=== PATIENT | male | born 1975 | race Caucasian/White ===

== ENCOUNTER 2019-10-15 17:28 | Emergency (ER) | payer MEDICAID, SELFPAY ==
[2019-10-15 17:31] VITALS: BP 133/76; PULSE 84; RESP 20; O2SAT 98
[2019-10-15 17:36] VITALS: BP 133/76; PULSE 77; RESP 17; TEMP 37.1; O2SAT 98; BMI 23.7
--- NOTE | 2019-10-15 17:43 | XR_ITS ---
PROCEDURE: XR WRIST RT 2V CLINICAL INDICATION: injury COMPARISON: No exams were available for comparison FINDINGS: The distal radius and ulna appear intact. The carpal bones all appear normal. There is mild diffuse soft tissue swelling of the distal forearm and hand however see no opaque or semi opaque foreign bodies. IMPRESSION: Possible mild soft tissue swelling, no fracture seen and no definite foreign body seen Dictated by: Dr. Quincy Parry MD 10/15/2019 19:49 Dr. Quincy Parry MD in [place] 10/15/2019 19:49
--- NOTE | 2019-10-15 18:32 | PC.NURSE ---
pt and updated on plan of care and wait. both deny questions or needs at this time.
--- NOTE | 2019-10-15 19:00 | [facility].EDGENADL ---
ED Disposition Clinical Impression: Wrist laceration Qualifiers: Encounter type: initial encounter Laterality: right Qualified Code(s): S61.511A - Laceration without foreign body of right wrist, initial encounter Disposition: Home, Self-Care Condition on Discharge: Good Instructions: DI for Laceration Repair Additional Instructions: Additional instructions for LACERATION: Clean the wound daily with soap and water. You may shower. Apply a thin film of antibiotic ointment such as neosporin or triple antibiotic after showering and apply a bandage. Avoid submerging the wound, no swimming. See your primary care physician or return to the [facility] in 10 days for suture removal. The [facility] is open 1 PM to 9 PM 7 days a week. Return if any signs of infection including increasing pain, pus drainage, swelling, redness, red streaks, or fever. Referrals: Too Garay [Primary Care Provider] - - Critical Care Critical Care Time: No Attestation: On 10/15/19, the high probability of a clinically significant, sudden or life threatening deterioration of the following system(s) required my full and direct attention, intervention and personal management. The time I documented below is in addition to time spent performing reported procedures but includes the following listed in this critical care notation. Medical Decision Making - Mundo Inquiry Pt receiving controlled substance: No Vital Signs: 10/15/19 17:31 10/15/19 17:36 Temperature 98.7 F Temperature Source Oral Pulse Rate [Right Radial] 84 77 Respiratory Rate 20 17 Blood Pressure [Right Arm] 133/76 133/76 Blood Pressure Mean [Right Arm] 95 95 Blood Pressure Source [Right Arm] Automatic Cuff Blood Pressure Position [Right Arm] Supine 02 Sat by Pulse Oximetry 98 98 Oxygen Delivery Method Room Air Room Air Orders (Tests/Meds): ED MEDICATIONS Discontinued Medications Generic Name Dose Route Start Last Admin Trade Name Freq PRN Reason Stop Dose Admin Lidocaine/Epinephrine 10 ml 10/15/19 19:05 10/15/19 19:19 Lidocaine 2% W/Epi 1:100,000 20ml Vial IJ 10/15/19 19:06 10 ml ONCE ONE Administration Tetanus/Reduced Diphtheria/Acell Pertussis 0.5 ml 10/15/19 17:44 10/15/19 18:01 Adacel Tdap 0.5ml Syringe IM 10/15/19 17:45 0.5 ml .ONCE ONE Administration ORDERS Category Date Time Status XR wrist RT 2V Stat Exams 10/15/19 17:43 Taken - Radiology Data #1 Image(s): Wrist Image Reviewed: Yes I reviewed the patient's radiology image Preliminary Findings: Normal/NAD General Adult HPI - General Chief complaint: Skin/Abscess/Foreign Body Stated complaint: AO 0815@1530 lac to r wrist cut metal Time Seen by Provider: 10/15/19 19:00 Mode of Arrival: Ambulatory Limitations: No Limitations Description of Symptoms (Recalled from ER Triage Doc. by RN): pt reports to ed with c/o right wrist laceration. pt states he was working on his house when he accidentally cut his right wrist on a piece of metal. +etoh. - History of Present Illness HPI narrative: The patient says that he cut his right wrist on a piece of metal flashing while working on his house. He went to the urgent treatment center in [place] and the practitioner there had concern about possible tendon injury and inability to irrigate the wound properly there. He was therefore sent to the emergency room. No numbness or weakness. - Related Data Home Medications Medication Instructions Recorded Confirmed No Known Home Medications 10/15/19 10/15/19 Allergies Allergy/AdvReac Type Severity Reaction Status Date / Time No Known Allergies Allergy Verified 10/15/19 17:43 [facility] History - Hepatitis A Screen Drug use history?: No High risk sexual behaviors?: No History of sexually transmitted infection?: No Currently employed?: No Childcare worker?: No Do you have indoor plumbing?: Yes Do you have electricity?: Yes Attestati
[2019-10-15 19:47] VITALS: BP 133/76; PULSE 77; RESP 17; TEMP 37.1; O2SAT 98
== END 2019-10-15 19:51 | disposition home or self-care (01) ==
PROVIDERS: Emergency Provider Emergency Medicine; PCP Family Medicine
DX: S61.511A Laceration without foreign body of right wrist, initial encounter (principal); W26.8XXA Contact with other sharp object(s), not elsewhere classified, initial encounter; Y92.019 Unspecified place in single-family (private) house as the place of occurrence of the external cause; Z23 Encounter for immunization; F10.10 Alcohol abuse, uncomplicated; F17.210 Nicotine dependence, cigarettes, uncomplicated
CPT/HCPCS: 12032; 73100; 90715; 96372; 99282